=== PATIENT | female | born 1965 | race Hispanic/Latino ===

== ENCOUNTER → 2020-02-04 | Outpatient (CLI) | payer OTHER | END | disposition home or self-care (01) | LOC: OIH 09:41 | PROVIDERS: ATTEND Family Medicine | DX: M54.5 Low back pain (principal) | CPT/HCPCS: 72100 ==

== ENCOUNTER 2021-09-22 12:49 | Emergency (ER) | payer MEDICARE ==
[~2021-09-22] VITALS: Ht 162.6 cm; Wt 56.7 kg
[2021-09-22 13:11] LABS: BASOPHILS % (AUTO) 0.7 % (0.0-5.0); EOSINOPHILS % (AUTO) 2.9 % (0.0-8.0); HEMATOCRIT 39.6 % (36-48); LYMPHOCYTES % (AUTO) 16.4 % (21.0-51.0); MEAN CORPUSCULAR HEMOGLOBIN 27.8 pg (27.0-33.0); MEAN CORPUSCULAR HGB CONC 32.6 g/dL (32.0-36.0); MEAN CORPUSCULAR VOLUME 85.3 fL (79-99); MONOCYTES % (AUTO) 5.9 % (3.0-13.0); NEUTROPHILS % (AUTO) 73.8 % (40.0-77.0); PLATELET COUNT (AUTO) 409 K/uL (130-400); RED BLOOD CELL COUNT(AUTO) 4.64 MIL/uL (4.00-5.50); RED CELL DISTRIBUTION WIDTH 12.8 % (11.0-15.5); WHITE BLOOD COUNT (AUTO) 9.6 K/uL (4.8-10.8)
[2021-09-22 13:21] LABS: CREATININE 1.1 mg/dL (0.5-1.5); POTASSIUM 3.9 mmol/L (3.5-5.1)
[2021-09-22 13:26] LABS: ALBUMIN 3.5 g/dL (3.5-5.0); TOTAL PROTEIN, SERUM 7.9 g/dL (6.0-8.3)
[2021-09-22 13:59] LABS: APPEARANCE,URINE CLEAR (CLEAR); BILIRUBIN,URINE NEGATIVE (NEGATIVE); COLOR,URINE YELLOW (YELLOW); GLUCOSE, URINE (UA) NEGATIVE (NEGATIVE); KETONES,URINE NEGATIVE (NEGATIVE); LEUKOCYTE ESTERASE ,URINE NEGATIVE (NEGATIVE); NITRATE,URINE NEGATIVE (NEGATIVE); OCCULT BLOOD,URINE SMALL (NEGATIVE); PH,URINE 5.5 (5.0-8.0); PROTEIN,URINE NEGATIVE (NEGATIVE); UROBILINOGEN,URINE 0.2 mg/dL (0.2-1.0)
[2021-09-22] MEDS ORDERED: 0.9%NACL 1000ML 1,000 ML IV ONE (14:00)
[2021-09-22 14:07] LABS: BACTERIA,URINE Rare /HPF (None Seen); MUCUS,URINE Few LPF (None Seen); SQUAMOUS EPITHELIAL CELL,UR Rare /HPF (0-2)
[2021-09-22 15:00] VITALS: BP 104/56
[2021-09-22] MEDS ORDERED: HYDROCODONE/ACETAMINOPHEN 5/325 MG TAB ONE (15:09)
[2021-09-22] MEDS ORDERED: HYDROCODONE/ACETAMINOPHEN 5/325 MG TAB PO ONE (15:30)
== END 2021-09-22 15:22 | disposition home or self-care (01) ==
LOC: EDH 12:49
DX: E86.0 Dehydration (principal); R55 Syncope and collapse
CPT/HCPCS: 36415; 80053; 81001; 84484; 85025; 93005

== ENCOUNTER 2022-01-13 09:39 | Emergency (ER) | payer MEDICARE ==
[~2022-01-13] VITALS: Ht 162.6 cm; Wt 57.2 kg
[2022-01-13 12:26] LABS: APPEARANCE,URINE CLOUDY (CLEAR); BILIRUBIN,URINE NEGATIVE (NEGATIVE); COLOR,URINE LIGHT-YELLOW (YELLOW); GLUCOSE, URINE (UA) NEGATIVE (NEGATIVE); KETONES,URINE NEGATIVE (NEGATIVE); LEUKOCYTE ESTERASE ,URINE NEGATIVE Leu/uL (NEGATIVE); NITRATE,URINE NEGATIVE (NEGATIVE); OCCULT BLOOD,URINE SMALL (NEGATIVE); PH,URINE 5.5 (5.0-8.0); PROTEIN,URINE NEGATIVE (NEGATIVE); UROBILINOGEN,URINE 0.2 mg/dL (0.2-1.0)
[2022-01-13] MEDS ORDERED: KETOROLAC 30MG VIAL (30MG/ML) IVP ONE (12:30)
[2022-01-13] MEDS ORDERED: ORPHENADRINE CITRATE 30 MG/ML ML IVP ONE (12:30)
[2022-01-13 12:59] LABS: BACTERIA,URINE RARE /HPF (None Seen); CALCIUM OXALATE CRYSTALS,UR FEW /LPF (None Seen); MUCUS,URINE RARE LPF (None Seen); OTHER CASTS, URINE 1 /LPF (None Seen); SQUAMOUS EPITHELIAL CELL,UR MOD /HPF (0-2)
[2022-01-13] MEDS ORDERED: PHENAZOPYRIDINE HCL 200 MG TABLET PO ONE (13:30)
[2022-01-13] MEDS ORDERED: CEFTRIAXONE 1G VIAL IM ONE (13:30)
[2022-01-13] MEDS ORDERED: PHEN-847 PO (13:37)
[2022-01-13] MEDS ORDERED: TRAM1TAB2 PO (13:37)
[2022-01-13] MEDS ORDERED: CEPH500B PO (13:37)
[2022-01-13 14:18] VITALS: BP 132/81
== END 2022-01-13 14:12 | disposition home or self-care (01) ==
LOC: EDH 09:39
DX: N30.90 Cystitis, unspecified without hematuria (principal); M51.36 Other intervertebral disc degeneration, lumbar region; Z79.1 Long term (current) use of non-steroidal anti-inflammatories (NSAID)
CPT/HCPCS: 99284; 96374; 96375; 87088; 81001; 72100; 96372; J0696; J1885; J2360

== ENCOUNTER 2022-05-02 08:02 | Emergency (ER) | payer MEDICARE ==
[~2022-05-02] VITALS: Ht 162.6 cm; Wt 59.0 kg
[~2022-05-02 08:02] MED LIST: CEPH500B PO; PHEN-847 PO; TRAM1TAB2 PO
[2022-05-02] MEDS ORDERED: KETOROLAC 30MG VIAL (30MG/ML) IM STA (08:19)
[2022-05-02 08:29] VITALS: BP 104/70
[2022-05-02] MEDS ORDERED: LIDOCAINE 5% TOPICAL PATCH TP ONE (08:30)
[2022-05-02] MEDS ORDERED: GABA300C PO (09:35)
[2022-05-02] MEDS ORDERED: LIDOP TD (09:35)
[2022-05-02 10:57] LABS: APPEARANCE,URINE CLEAR (CLEAR); BILIRUBIN,URINE NEGATIVE (NEGATIVE); COLOR,URINE COLORLESS (YELLOW); GLUCOSE, URINE (UA) NEGATIVE (NEGATIVE); KETONES,URINE NEGATIVE (NEGATIVE); LEUKOCYTE ESTERASE ,URINE NEGATIVE Leu/uL (NEGATIVE); NITRATE,URINE NEGATIVE (NEGATIVE); OCCULT BLOOD,URINE NEGATIVE (NEGATIVE); PROTEIN,URINE NEGATIVE (NEGATIVE); UROBILINOGEN,URINE 0.2 mg/dL (0.2-1.0)
[2022-05-02 11:02] LABS: MUCUS,URINE RARE LPF (None Seen); RBC,URINE 0-1 /HPF (0-1); SQUAMOUS EPITHELIAL CELL,UR RARE /HPF (0-2); WBC,URINE 0-1 /HPF (0-1)
[2022-05-02 11:04] LABS: AMPHET/METH SCREEN,URINE NEGATIVE (NEGATIVE); BARBITURATE SCREEN, URINE NEGATIVE (NEGATIVE); BENZODIAZEPINES SCREEN,URINE POSITIVE (NEGATIVE); CANNABINOID SCREEN,URINE POSITIVE (NEGATIVE); COCAINE SCREEN,URINE POSITIVE (NEGATIVE); OPIATE SCREEN,URINE NEGATIVE (NEGATIVE); PHENCYCLIDINE SCREEN,URINE NEGATIVE (NEGATIVE)
== END 2022-05-02 11:26 | disposition home or self-care (01) ==
LOC: EDH 08:02
DX: M54.50 Low back pain, unspecified (principal); F19.10 Other psychoactive substance abuse, uncomplicated; F31.9 Bipolar disorder, unspecified; M79.7 Fibromyalgia; Z79.899 Other long term (current) drug therapy; Z90.710 Acquired absence of both cervix and uterus; Z90.89 Acquired absence of other organs
CPT/HCPCS: 99284; 80305; 81001; 72100; 96372; J1885

== ENCOUNTER 2022-12-11 07:04 | Emergency (ER) | payer OTHER, MEDICARE ==
[~2022-12-11] VITALS: Ht 162.6 cm; Wt 58.5 kg
[~2022-12-11 07:04] MED LIST changes: +GABA300C PO; +LIDOP TD
[2022-12-11] MEDS ORDERED: KETOROLAC 60 MG VIAL (30MG/ML) IM ONE (07:48)
[2022-12-11] MEDS ORDERED: KETOROLAC 30MG VIAL (30MG/ML) IM ONE (08:00)
[2022-12-11] MEDS ORDERED: ONDANSETRON ODT 4MG TAB SL ONE (09:30)
[2022-12-11] MEDS ORDERED: HYDROCODONE/ACETAMINOPHEN 10/325 MG TAB PO ONE (09:30)
[2022-12-11 11:20] VITALS: BP 131/59; PULSE 50; RESP 16; O2SAT 95
[2022-12-11 11:27] LABS: ADD UA MICROSCOPIC NO; APPEARANCE,URINE CLEAR (CLEAR); BILIRUBIN,URINE NEGATIVE (NEGATIVE); COLOR,URINE LIGHT-YELLOW (YELLOW); GLUCOSE, URINE (UA) NEGATIVE (NEGATIVE); KETONES,URINE NEGATIVE (NEGATIVE); LEUKOCYTE ESTERASE ,URINE NEGATIVE Leu/uL (NEGATIVE); NITRATE,URINE NEGATIVE (NEGATIVE); OCCULT BLOOD,URINE NEGATIVE (NEGATIVE); PH,URINE 5.5 (5.0-8.0); PROTEIN,URINE NEGATIVE (NEGATIVE); UROBILINOGEN,URINE 0.2 mg/dL (0.2-1.0)
[2022-12-11] MEDS ORDERED: IBUP-2070 PO (11:58)
== END 2022-12-11 12:02 | disposition home or self-care (01) ==
LOC: EDH 07:04
DX: M51.36 Other intervertebral disc degeneration, lumbar region (principal); M54.50 Low back pain, unspecified; F31.9 Bipolar disorder, unspecified; M79.7 Fibromyalgia; Z79.899 Other long term (current) drug therapy; Z98.890 Other specified postprocedural states; Z90.49 Acquired absence of other specified parts of digestive tract; Z90.710 Acquired absence of both cervix and uterus
CPT/HCPCS: 99285; 72131; 72128; 81003; 96372; J1885

== ENCOUNTER 2023-01-08 05:01 | Emergency (ER) | payer OTHER, MEDICARE ==
[~2023-01-08] VITALS: Ht 162.6 cm; Wt 59.4 kg
[~2023-01-08 05:01] MED LIST changes: +IBUP-2070 PO
[2023-01-08 05:12] VITALS: BP 105/63; PULSE 71; RESP 18; O2SAT 98
== END 2023-01-08 05:46 | disposition home or self-care (01) ==
LOC: EDH 05:01
DX: G89.29 Other chronic pain (principal); M54.50 Low back pain, unspecified; M79.7 Fibromyalgia; F31.9 Bipolar disorder, unspecified; Z90.49 Acquired absence of other specified parts of digestive tract; Z79.899 Other long term (current) drug therapy; Z72.89 Other problems related to lifestyle
CPT/HCPCS: 99281

== ENCOUNTER 2024-07-03 07:47 | Emergency (ER) | payer MEDICARE ==
[~2024-07-03] VITALS: Ht 162.6 cm; Wt 65.8 kg
[2024-07-03 07:48] VITALS: TEMP 98.1
--- NOTE | 2024-07-03 08:07 | EKG ---
[facility] Test Date: 2024-07-03 Test Time: 07:51:12 Pat Name: CRISTINO THURSTON Department: [facility] Room: Gender: F Pipe Layer: [id number] : [id number] Requested By: CELIO TABOR Order Number: [id number] Reading MD: Coral Can Measurements Intervals [place] Rate: 57 P: 56 PA: 155 QRS: 5 QRSD: 86 T: 26 QT: 396 QTc: 388 Interpretive Statements Sinus rhythm Compared to ECG 09/22/2021 13:25:30 Sinus bradycardia no longer present Electronically Signed On 07-04-2024 13:19:11 CDT by Coral Can Please click the below link to view image of tracing.
[2024-07-03 08:20] LABS: BASOPHILS # (AUTO) 0.06 K/uL (0.00-0.20); BASOPHILS % (AUTO) 0.6 % (0.0-5.0); EOSINOPHILS # (AUTO) 0.27 K/uL (0.00-0.70); EOSINOPHILS % (AUTO) 2.8 % (0.0-8.0); HEMATOCRIT 40.7 % (36-48); IMMATURE GRANULOCYTE ABSOLUTE 0.04 K/uL (0-1); LYMPHOCYTES # (AUTO) 3.2 K/uL (1.0-4.8); LYMPHOCYTES % (AUTO) 33.9 % (21.0-51.0); MEAN CORPUSCULAR HEMOGLOBIN 27.3 pg (27.0-33.0); MEAN CORPUSCULAR HGB CONC 31.2 g/dL (32.0-36.0); MEAN CORPUSCULAR VOLUME 87.5 fL (79-99); MONOCYTES # (AUTO) 0.7 K/uL (0.1-1.0); MONOCYTES % (AUTO) 7.8 % (3.0-13.0); NEUTROPHILS # (AUTO) 5.2 K/uL (1.8-7.7); NEUTROPHILS % (AUTO) 54.5 % (40.0-77.0); PLATELET COUNT (AUTO) 367 K/uL (130-400); RED BLOOD CELL COUNT(AUTO) 4.65 MIL/uL (4.00-5.50); RED CELL DISTRIBUTION WIDTH 13.9 % (11.0-15.5); WHITE BLOOD COUNT (AUTO) 9.5 K/uL (4.8-10.8)
[2024-07-03] MEDS: ASPIRIN 325MG TAB PO ONE (08:25)
[2024-07-03] MEDS: ketOROlac 15MG/ML VIAL (15MG/ML) IV ONE (08:26)
[2024-07-03 08:41] LABS: ALBUMIN 3.4 g/dL (3.5-5.0); BILIRUBIN,DIRECT 0.1 mg/dL (0.0-0.3); BILIRUBIN,TOTAL 0.2 mg/dL (0.2-1.0); CREATININE 0.9 mg/dL (0.5-1.0); POTASSIUM 4.1 mmol/L (3.5-5.1); TOTAL PROTEIN, SERUM 7.7 g/dL (6.0-8.3)
--- NOTE | 2024-07-03 08:48 | HMCIMG ---
CHEST 1VW HISTORY: Chest pain COMPARISON: None FINDINGS: A frontal projection of the chest was obtained. No acute pulmonary infiltrates is seen. The heart is borderline enlarged. Degenerative changes are seen. Prominent interstitial markings are seen. No evidence of aortic calcification is seen. IMPRESSION: 1. No acute pulmonary infiltrate is seen.
[2024-07-03 08:57] VITALS: BP 136/94; PULSE 52; RESP 15; O2SAT 97
--- NOTE | 2024-07-03 09:17 | ERN ---
General Chief Complaint: Chest Wall Pain Stated Complaint: CHEST WALL PAIN Time Seen by MD: 07:52 History of Present Illness Initial Comments 58-year-old female who presents for chest pain. Patient reports she woke up around three in the morning with left-sided chest pain. It does increase with deep respiration and certain movements. She reports some left arm tingling sensations. No neurologic deficits. No dyspnea no cough congestion no dizziness no fevers no other symptoms. She was never felt this before. She reports she was having difficulty sleeping because she was worried about the pain. Allergies: Coded Allergies: No Known Drug Allergies (Unverified Allergy, Unknown, 09/22/21) Home Meds Active Scripts Ibuprofen (Ibuprofen) 600 Mg Tablet, 600 MG PO Q6H PRN for PAIN, #30 TAB Prov:CRALOS TRAN MD 12/11/22 Gabapentin (Neurontin) 300 Mg Capsule, 300 MG PO TID, #60 CAP Prov:KADI GREEN MD 05/02/22 Lidocaine (Lidoderm Patch 5%) 1 Patch Patch, 1 PATCH TD DAILY for 30 Days, #30 ADH.PATCH 0 Refills Prov:KADI GREEN MD 05/02/22 Phenazopyridine HCl (Pyridium) 200 Mg Tab, 200 MG PO TIDPC for 3 Days, #9 TAB TAKE WITH FOOD TO PREVENT STOMACH UPSET. Prov:REBEKAH PACHECO 01/13/22 Cephalexin Monohydrate (Keflex) 500 Mg Cap, 500 MG PO TID for 7 Days, #21 CAP Prov:REBEKAH PACHECO 01/13/22 Tramadol HCl/Acetaminophen (Ultracet Tablet) 1 Each Tablet, 1 EACH PO TIDP for lumbago syndrome chronic, #45 TAB Prov:REBEKAH PACHECO 01/13/22 Past Medical History Past Medical History: Anxiety, Bipolar, Fibromyalgia Medical History Other: MUSCLE PAINS, INSOMNIA Past Surgical History: Hysterectomy, Tonsillectomy, Other Surgical History Other: BACK Family History Family History: Negative Social History Social History: Negative, Lives with family Female( History) : 4 Para: 4 Aborts: 0 ROS Dictation CONSTITUTIONAL: No chills, no fever, no weakness, no diaphoresis, no malaise. HEAD/FACE: No signs of trauma. EENT: No eye pain, no blurred vision, no tearing, no double vision, no ear pain, no ear discharge, no nose pain, no nasal congestion, no throat pain, no throat swelling, no mouth pain. RESPIRATORY: No cough, no orthopnea, no SOB, no stridor, no wheezing. CARDIOVASCULAR: Chest pain GASTROINTESTINAL/ABDOMINAL: No abdominal pain, no constipation, no diarrhea, no nausea, no vomiting. GENITOURINARY: No abnormal discharge, no dysuria, no frequent urination, no hematuria. No complaints of pain in the genitals. MUSCULOSKELETAL: No back pain, no gout, no joint pain, no joint swelling, no muscle pain, no muscle stiffness, no neck pain. INTEGUMENTARY: No change in color, no change in hair/nails, no dryness, no lesion, no lumps, no rash. NEUROLOGICAL/PSYCH: No anxiety, not depressed, no emotional problem, no headach e, no numbness, no pre-existing deficit, no history of seizures, no tremors, no weakness. HEMATOLOGIC/LYMPHATIC: Not anemic, no history of blood clots, no apparent bleeding, no bruising, glands not swollen. All Systems Negative, Except as Noted. Physical Exam Physical Exam Dictation VITAL SIGNS: Reviewed. GENERAL APPEARANCE: Alert, oriented x3, no acute distress. HEAD AND FACE: Non-traumatic. EYES: PERRL, pink conjunctivas, eyelid no trauma, anterior chamber clear. EARS: Pinnas intact and no signs of trauma or erythema. Ear canals clear and no discharge. TMs no erythema. NOSE: No discharge, no bleeding. OROPHARYNX: Mouth normal, teeth no caries, tongue pink. Pharynx clear, no erythema. Tonsils no exudates, no abscesses noted. Mucous membrane moist. NECK: Supple, non-tender, no thyromegaly, no masses, no JVD, no bruits. BREAST: Deferred. CHEST: No tenderness, no crepitus, no paradoxical movement, no retractions. LUNGS: Clear, well-ventilated, symmetric, no rales, no wheezing, no rhonchi, no stridor, good breath sounds bilaterally. HEART: Regular rate, regular rhythm, no murmur, no gallops. VASCULAR: No peripheral edema. ABDOMEN: Soft, positive bowel sounds, nondistended, no guarding, nontender, no rebound, no masses no hepatomegaly, no splenomegaly, no Powell's sign, no hernias. RECTAL: Deferred. GENITAL: Deferred. NEUROLOGICAL: Normal speech, gross motor function intact, gross sensory function intact. MUSCULOSKELETAL: Neck nontender, full range of motion, back nontender, full range of motion. EXTREMITIES: Nontender, full range of motion. SKIN: Color pink, dry, no turgor, no rash, no lacerations, no abrasions, no contusions. LYMPHATICS: Deferred. Results Laboratory and Microbiology Lab and Micro Result Laboratory Tests Test 07/03/24 08:05 07/03/24 09:00 White Blood Count 9.5 K/uL (4.8-10.8) Red Blood Count 4.65 MIL/uL (4.00-5.50) Hemoglobin 12.7 g/dL (12.0-16.0) Hematocrit 40.7 % (36-48) Mean Corpuscular Volume 87.5 fL (79-99) Mean Corpuscular Hemoglobin 27.3 pg (27.0-33.0) Mean Corpuscular Hemoglobin Concent 31.2 g/dL (32.0-36.0) L Red Cell Distribution Width 13.9 % (11.0-15.5) Platelet Count 367 K/uL (130-400) Mean Platelet Volume 11.0 fL (7.5-10.5) H Immature Granulocyte % (Auto) 0.4 % (0-1) Neutrophils (%) (Auto) 54.5 % (40.0-77.0) Lymphocytes (%) (Auto) 33.9 % (21.0-51.0) Monocytes (%) (Auto) 7.8 % (3.0-13.0) Eosinophils (%) (Auto) 2.8 % (0.0-8.0) Basophils (%) (Auto) 0.6 % (0.0-5.0) Neutrophils # (Auto) 5.2 K/uL (1.8-7.7) Lymphocytes # (Auto) 3.2 K/uL (1.0-4.8) Monocytes # (Auto) 0.7 K/uL (0.1-1.0) Eosinophils # (Auto) 0.27 K/uL (0.00-0.70) Basophils # (Auto) 0.06 K/uL (0.00-0.20) Absolute Immature Granulocyte (auto 0.04 K/uL (0-1) Nucleated Red Blood Cells 0.0 % (0.0-0.19) D-Dimer Quantitative (PE/DVT) 331 ng/mL (0-500) Sodium Level 140 mmol/L (136-145) Potassium Level 4.1 mmol/L (3.5-5.1) Chloride Level 105 mmol/L (101-111) Carbon Dioxide Level 30 mmol/L (21-32) Blood Urea Nitrogen 17 mg/dL (7-18) Creatinine 0.9 mg/dL (0.5-1.0) Glomerular Filtration Rate Calc 75 mL/min (>90) Random Glucose 82 mg/dL (70-105) Total Calcium 8.7 mg/dL (8.5-10.1) Total Bilirubin 0.2 mg/dL (0.2-1.0) Direct Bilirubin 0.1 mg/dL (0.0-0.3) Aspartate Amino Transf (AST/SGOT) 14 U/L (10-37) Alanine Aminotransferase (ALT/SGPT) 14 U/L (12-78) Alkaline Phosphatase 90 U/L (50-136) Total Creatine Kinase 64 U/L (21-232) Troponin I High Sensitivity 5 ng/L (4-50) 6 ng/L (4-50) C-Reactive Protein, Quantitative 5.80 mg/L (0.5-3.0) H B-Type Natriuretic Peptide 64 pg/mL (0-100) Total Protein 7.7 g/dL (6.0-8.3) Albumin 3.4 g/dL (3.5-5.0) L Lipase 39 U/L (16-77) SARS-CoV-2 Antigen (Rapid) PRESUMPTIVE NEGATIVE MDM CC: CP beginning at 0330 today, radiates to L arm. Historian: patient Limitations by social determinates of health: none Comorbidities: fibromyalgia, bipolar disorder Ddx: MSK pain, ACS, PE, TAD, etc. VSS, remained stable in ED. EKG (independently interpreted by me): NSR, bradycardia, rate 57, normal axis, good RWP, no STEMI. CXR( independenly interpreted by me): no focal infiltrates, no cardiomegally, no pleural effusions. Labs (independently ordered & interpreted by me): CBC normal, d-dimer WNL, BMP normal, LFTs normal, lipase normal, BNP normal, CRP mildly elevated 5.8, tropon in x2 WNL HEART score of 2, troponin x 2 negative. Safe for outpateint workup. D-dimer WNL w/ low risk [place]. No signs of PE, TAD, PNA, or other life threats. Treatment in ED: PO ASA 325mg, IV toradol. Re-evaluation: pain free. Low suspicion for life threats. Plan: will DC to PCP f/u. Recommend OTC NSAIDs as needed. ED Course Orders Procedure Category Date Status Time Vital Signs Per CPOE 07/03/24 Transmitted Routine 07:49 Chest 1vw RAD 07/03/24 Resulted 07:49 12 Lead Ekg Tracing- EKG 07/03/24 Complete Technical 07:49 Oxygen By Nc/Pulse Ox CPOE 07/03/24 Transmitted 07:49 Maintain Iv CPOE 07/03/24 Transmitted 07:49 Iv Insertion CPOE 07/03/24 Transmitted 07:49 Cardiac Monitoring CPOE 07/03/24 Transmitted 07:49 Pulse Oximetry With CPOE 07/03/24 Transmitted Vs And Prn 07:49 Cbc With Differential LAB 07/03/24 Complete 07:49 Activity: Br W/Brp CPOE 07/03/24 Transmitted With Assist 07:49 Troponin I High LAB 07/03/24 Complete Sensitivity 07:49 Urinalysis Profile LAB 07/03/24 Logged 07:49 B-Type Natriuretic LAB 07/03/24 Complete Peptide 07:52 Hepatic Function Panel LAB 07/03/24 Complete 07:52 Lipase LAB 07/03/24 Complete 07:52 Covid19 (Sars Antigen LAB 07/03/24 Complete Rapid) 08:03 D-Dimer LAB 07/03/24 Complete 08:03 Aspirin 325mg Tab PHA 07/03/24 Complete (Aspirin 325mg Tab) 08:30 Ketorolac PHA 07/03/24 Complete Tromethamine 15mg/Ml 08:30 Basic Metabolic Panel LAB 07/03/24 Complete 08:05 Creatine Kinase, Total LAB 07/03/24 Complete 08:05 Crp Quantitative LAB 07/03/24 Complete 08:05 Troponin I High LAB 07/03/24 Complete Sensitivity 08:52 Current Medications Medications (Trade) Dose Ordered Sig/Matt Route PRN Reason Start Time Stop Time Status Last Admin Dose Admin Aspirin (Aspirin 325mg Tab) 325 mg ONCE ONCE PO 07/03/24 08:30 07/03/24 08:31 DC 07/03/24 08:25 Ketorolac Tromethamine (toRADol) 15 mg ONCE ONCE IV 07/03/24 08:30 07/03/24 08:31 DC 07/03/24 08:26 Vital Signs Date Time Temp Pulse Resp B/P (MAP) Pulse Ox O2 Delivery O2 Flow Rate FiO2 07/03/24 08:57 52 15 136/94 97 Room Air* 0 21 07/03/24 07:48 98.1 54 16 130/84 100 Room Air* 0 21 07/03/24 07:48 98.1 54 16 130/84 100 Room Air 0 DX & DISP Disposition: Discharge Departure Impression: Primary Impression: Chest pain with low risk for cardiac etiology Condition: Stable Additional Instructions: You are a low risk for significant acute cardiac disease at this time. Your vital signs have been stable here in the ER. Your EKG is normal. The chest x-ray is normal. Your blood work (CBC, BMP, liver function tests, lipase, D-dimer, BNP, CK, troponin x2) is unremarkable. As we discussed, you are LOW RISK for significant cardiac disease, but not ZERO risk. I recommend that follow up with your primary doctor for further evaluation. Please return to the emergency department as needed. Referrals: JESUS JIMENEZ Jr., MD (PCP) CELIO TABOR DO Jul 03, 2024 09:17
[2024-07-03 10:32] LABS: APPEARANCE,URINE CLOUDY (CLEAR); BILIRUBIN,URINE NEGATIVE (NEGATIVE); COLOR,URINE LIGHT-YELLOW (YELLOW); GLUCOSE, URINE (UA) NEGATIVE (NEGATIVE); KETONES,URINE NEGATIVE (NEGATIVE); LEUKOCYTE ESTERASE ,URINE 250 Leu/uL (NEGATIVE); NITRATE,URINE 2+ (NEGATIVE); PROTEIN,URINE NEGATIVE (NEGATIVE); UROBILINOGEN,URINE 0.2 mg/dL (0.2-1.0)
[2024-07-03 10:39] LABS: ADD UA MICROSCOPIC YES
[2024-07-03 10:50] LABS: BACTERIA,URINE FEW /HPF (None Seen); SQUAMOUS EPITHELIAL CELL,UR RARE /HPF (0-2); WBC,URINE 26-50 /HPF (0-1)
== END 2024-07-03 10:59 | disposition home or self-care (01) ==
LOC: EDH 07:47
DX: R07.89 Other chest pain (principal); F31.9 Bipolar disorder, unspecified; F41.9 Anxiety disorder, unspecified; M79.7 Fibromyalgia; Z20.822 Contact with and (suspected) exposure to COVID-19; Z79.899 Other long term (current) drug therapy; Z90.710 Acquired absence of both cervix and uterus; Z90.89 Acquired absence of other organs; Z98.890 Other specified postprocedural states
CPT/HCPCS: 99285; 96374; 71045; 87426; 82550; 80076; 84484 ×2; 80048; 83880; 83690; 85025; 85378; 87086 ×2; 87186; 86140; 81001; 36415; 93005; J1885